=== PATIENT | female | born 1940 | race Caucasian/White ===

== ENCOUNTER 2021-03-22 12:54 | Outpatient (REF) | payer MEDICARE, SELFPAY ==
--- NOTE | ~2021-03-22 | MM_ITS ---
EXAMINATION: MM DIAGNOSTIC DIGITAL MAMMOGRAPHY, BILATERAL CLINICAL INFORMATION: Due for yearly. Right lumpectomy for invasive ductal cancer 09/13/2017. COMPARISON: Mammography: 10/22/2018, 04/16/2018, 09/13/2017, 08/23/2017, 08/16/2017, 11/04/2016 TECHNIQUE: Digital mammography is performed in craniocaudal and mediolateral oblique views along with computer-aided detection (CAD). Additional right magnification ML view is provided. Exam is technically challenging requiring 2 technologists. Exam optimized to patient capabilities. FINDINGS: The breasts are heterogeneously dense, which may obscure small masses (ACR BI-RADS breast composition Category c). There are post therapy changes on the right with mild stable scarring and surgical clips. Some old biopsy clip markers again seen right breast. There is no significant mass or interval architectural abnormality or abnormal calcifications. No significant changes. Results are provided to the patient at time of visit by the technologist. MM/MM diagnostic mammo BI IMPRESSION: No mammographic evidence of malignancy. Post therapy changes right breast. ASSESSMENT: BI-RADS 2: Benign RECOMMENDATION: Routine annual mammography screening. This patient's information was entered into a reminder system with a target due date for their next mammogram.
== END 2021-03-22 12:55 | disposition home or self-care (01) ==
LOC: HO.MAMMO 12:54
PROVIDERS: Visit Provider Internal Medicine Medical Oncology
DX: Z85.3 Personal history of malignant neoplasm of breast (principal)
CPT/HCPCS: 77066

== ENCOUNTER → 2021-03-23 11:11 | Outpatient (REF) | payer MEDICARE, SELFPAY ==
--- NOTE | ~2021-03-23 | NM_ITS ---
EXAMINATION: NM BONE SCAN OF THE WHOLE BODY CLINICAL INFORMATION: Breast cancer, look for bone metastases. COMPARISON: The previous bone scan dated 12/13/2017 is available for comparison. No recent radiographs are available for comparison. TECHNIQUE: Multiple gamma scintillation camera images of the whole body were performed 2.5 hours following the intravenous administration of 20 mCi Tc-99m MDP. FINDINGS: In the head, there is mildly increased activity diffusely in the frontal calvarium, probably due to hyperostosis frontalis interna. In the thoracic cage and upper extremities, there is mildly increased activity in the sternoclavicular joints bilaterally and at the costochondral junctions of the sixth, seventh, and eighth ribs and in a faint focus in the posterolateral aspect of the left 10th rib. There is mildly increased activity predominantly medially in the right humeral head. In the spine, there is a mild thoracolumbar kyphoscoliosis with lumbar convexity to the left. There is mildly increased activity in the left posterior elements at L4-L5 and a faint focus of increased activity at the left costovertebral junction of T1. In the pelvis, there is intense abnormally increased activity in a curvilinear focus through the full height of the right sacral ala. This is just medial to the right sacroiliac joint. Additional foci of mildly to moderately increased activity are present in the right superior and inferior pubic rami and adjacent to the symphysis in the left inferior pubic ramus. Superior pubic ramus on the left is obscured by the urinary bladder in all views. In the lower extremities, no significant abnormalities are present. No other definite bony abnormalities are noted. The urinary bladder and faint visualization of both kidneys are noted. Compared to the previous bone scan dated 12/13/2017 all the abnormalities or new except for mild abnormality in the left costovertebral junction of T1 and minimal abnormalities at L4-L5. IN/IN bone scan whole body IMPRESSION: 1. Very prominent abnormalities in the pelvis are most consistent with an acute osteoporotic insufficiency fracture in the right sacral ala and additional insufficiency fractures in the pubic rami bilaterally. Metastatic disease cannot be entirely ruled out but is a much less likely explanation for this pattern of abnormalities in the pelvis. 2. A few additional mild nonspecific abnormalities are noted as described above and these are all likely arthritic or traumatic in etiology. None of these abnormalities is strongly suspicious for metastatic disease.
== END ==
LOC: HO.NUCMED 11:11
PROVIDERS: Visit Provider Internal Medicine Medical Oncology
DX: C50.919 Malignant neoplasm of unspecified site of unspecified female breast (principal)
CPT/HCPCS: 78306; A9503

== ENCOUNTER → 2021-03-30 14:29 | Outpatient (BNVA) | payer MEDICARE, SELFPAY | PROVIDERS: PCP Nurse Practitioner Family; Visit Provider Obstetrics & Gynecology ==

== ENCOUNTER → 2024-05-01 13:38 | Outpatient (RCR) | payer MEDICARE, SELFPAY ==
--- NOTE | 2020-12-31 11:20 | PM.HEMONCPN ---
Medical Summary - Medical Summary Date of Service: 12/31/20 Chief complaint: Follow-up for: Breast cancer. Medical Summary: DIAGNOSIS: Right breast carcinoma. INVASIVE DUCTAL CARCINOMA, WELL-DIFFERENTIATED. TUMOR SIZE: 0.4 CM. IN GREATEST DIMENSION. HISTOLOGIC TYPE: INVASIVE DUCTAL CARCINOMA. HISTOLOGIC GRADE: TUBULE FORMATION: 1 OF 3. NUCLEAR PLEOMORPHISM: 1 OF 3. MITOTIC RATE: 1 OF 3. TOTAL SCORE: 3 OF 9. OVERALL GRADE: GRADE 1. CARCINOMA IN-SITU: DUCTAL (DCIS): NOT IDENTIFIED. LOBULAR (LCIS): NOT IDENTIFIED. RESECTION MARGINS: INVASIVE CARCINOMA: 1.0 CM. FROM THE CLOSEST ANTERIOR RESECTION MARGIN. DCIS: NOT IDENTIFIED. LYMPH-VASCULAR INVASION: NOT IDENTIFIED. ANCILLARY STUDIES: ESTROGEN RECEPTOR: POSITIVE, STRONG STAINING IN 51-100% OF TUMOR CELLS. PROGESTERONE RECEPTOR: POSITIVE, STRONG STAINING IN 51-100% OF TUMOR CELLS. HER-2/nick: PENDING; WILL BE REPORTED IN AN ADDENDUM. P63: NEGATIVE IN TUMOR CELLS. 3 sentinel nodes were negative. PATHOLOGIC STAGE: pT1a pN0(i-). CURRENT THERAPY: STARTED TAMOXIFEN SEPTEMBER 2017. Interval History Interval history: This is a pleasant 80 year-old lady, here for a follow-up visit, after a long hiatus. She was last seen here in August 2019. Apparently subsequently her condition deteriorated. She was deemed unsafe at home. Was found by family wandering naked at home. She had experienced significant weight loss. A couple of weeks ago she fell and was taken to [facility] emergency room. Medical records from 11/09: Patient was found naked in confused at her home by her [employer]IC TE[employer]ER. Last known well was 3 days prior. She was mildly hypertensive and tachycardic. O2 sat 90%. Unable to provide any meaningful information. Her labs were normal troponin normal. TSH 3 0.16. COVID negative. B12 was noted to be low. That was replaced. UA negative. Chest x-ray negative. CT head negative. Neurology recommended supportive therapy. EEG showed no epileptiform activity. MRI of the brain showed no acute pathology, multiple punctate foci of microhemorrhage bilaterally may reflect sequelae of CVA, embolic disease, small vessel disease or prior trauma. Upon speaking with her niece Bonnie she has had progressively worsening cognitive impairment over the last 1-2 years. She was noted to have encephalopathy however likely had significant dementia. She was transferred to correction, from the emergency room. Since then she has been at [facility]. On talking to the nurse practitioner Eleonora Siegel, patient has been self isolating. She spends a lot of time in bed. She is cooperative however she is quite impaired. She is supposed to walk with a walker however she forgets. She requires constant redirection. With that she can manage ADLs independently. She has had a chronic pain in the back and neck. That has been going on for years. She denies any breast related complaints. No chest pain or trouble breathing. No abdominal pain, nausea vomiting, heartburn indigestion. Her bowels are moving without any gross blood in it. Appetite is not good. She is not a big eater. She has lost a significant amount of weight. She is in good spirits. The rest of the review of systems is unremarkable. Review of Systems - Constitutional Reports system reviewed and no additional complaints, except as documented, Reports lack of energy - Eyes Reports system reviewed and no additional complaints, except as documented - ENT Reports system reviewed and no additional complaints, except as documented - Cardiovascular Reports system reviewed and no additional complaints, except as documented - Respiratory Reports no additional respiratory complaints - Gastrointestinal Reports system reviewed and no additional complaints, except as documented - Genitourinary Reports no additional female genitourinary complaints - Musculoskeletal Reports system reviewed and no additional complaints, except as documented, Reports back pain, Reports joint pain - Integumentary/Breasts Skin/Breast: Reports no additional skin complaints - Neurologic Reports system reviewed and no additional complaints, except as documented, Reports abnormal gait, Reports confusion, Reports memory loss Comments: Dementia. - Psychiatric Reports system reviewed and no additional complaints, except as documented - Endocrine Reports no additional endocrine complaints - Hematologic/Lymphatic Reports system reviewed and no additional complaints, except as documented - Allergic/Immunologic Reports system reviewed and no additional complaints, except as documented [facility] Medical History: Medical History (Last Updated 12/31/20 @ 11:56 by Ximena Casillas) Altered mental status Anxiety and depression Breast cancer Cervical spondylosis Deficiency of other specified B group vitamins Encephalopathy Endometriosis GERD (gastroesophageal reflux disease) Glucose intolerance Hyperlipemia Hypertension Hypothyroidism Migraine MVP (mitral valve prolapse) Osteopenia Other abnormalities of gait and mobility Other symptoms and signs involving cognitive functions and awareness Personal history of urinary calculi Thrombocytosis Unspecified dementia without behavioral disturbance Unsteadiness on feet Weakness Functional capacity: uses cane/walker Patient : No Family History: Family History (Last Updated 12/31/20 @ 11:23 by Ximena Casillas) Mother Cervical cancer Father Heart attack Sister Diabetes mellitus Sister ALS (amyotrophic lateral sclerosis) Surgical History: Surgical History (Last Updated 12/31/20 @ 11:21 by Ximena Casillas) H/O lumpectomy Social History: Social History (Last Updated 12/31/20 @ 11:24 by Ximena Casillas) Alcohol History: Alcohol intake: former Alcohol History Details: Alcohol intake frequency: does not drink Tobacco History: Smoking Status: Former smoker Substance Use History: Use of substances other than those prescribed or required for medical reasons: No Nutrition Assessment: Patient : No Oncology Screenings - ECOG Performance Status ECOG Performance Status: 1 Home Medications and Allergies Home Medications Medication Instructions Recorded Confirmed Type acetaminophen 325 mg PO QID PRN 12/31/20 12/31/20 History alendronate [Fosamax] 70 mg PO QWEEK 12/31/20 12/31/20 History bisacodyl 10 mg [place] DAILY 12/31/20 12/31/20 History calcium carbonate-vitamin D2 tab PO 12/31/20 History [Calcium + Vitamin D] gabapentin 100 mg PO BID 12/31/20 12/31/20 History lisinopril 2.5 mg PO DAILY 12/31/20 12/31/20 History magnesium citrate [Citrate of 150 ml PO DAILY PRN 12/31/20 12/31/20 History Magnesia] magnesium hydroxide [Milk of 400 mg PO DAILY PRN 12/31/20 12/31/20 History Magnesia] naloxone 0.4 mg IM Q2M PRN 12/31/20 12/31/20 History sodium phosphates [Fleet Enema] 118 ml [place] DAILY 12/31/20 12/31/20 History tamoxifen 20 mg PO DAILY 12/31/20 12/31/20 History tramadol 50 mg PO Q8H PRN 12/31/20 12/31/20 History Allergies Allergy/AdvReac Type Severity Reaction Status Date / Time codeine [CODEINE] Allergy Unknown NAUSEA & Unverified 05/20/20 16:30 VOMITING, nausea and vomiting Codeine Sulfate AdvReac Unknown nausea and Uncoded 08/26/19 00:00 vomiting Exam - Constitutional Present: no acute distress, thin, chronically ill appearing - Routine HEENT Exam Head: Present: normal inspection Eye: Present: normal appearance ENT: Present: mucous membranes moist - Routine Neck Exam Present: full ROM - Routine Respiratory Exam Present: CTAB - Routine Cardiovascular Exam Cardiovascular: Present: RRR, S1, S2 - Routine Abdominal Exam Present: soft, nontender - Routine Rectal Exam Patient deferred: digital exam - Routine Extremities Exam Present: nontender - Routine Back/Spine/Pelvis Exam Back/Spine: Present: full ROM - Routine Skin Exam Present: intact - Routine Neurological Exam Present: alert, oriented X3 - Routine Psychiatric Exam Present: normal affect Data - Labs CBC & Chem 7: 12/31/20 11:26 12/31/20 11:26 Progress Note: A/P (1) Breast cancer, right breast Status: Acute Assessment and plan: This is a pleasant 80 year-old lady, with recent diagnosis of Right Breast Carcinoma. Stage pT1A, p. N0 (i negative.) Tumor size is 0.4 cm, grade 1, no lymphovascular invasion, ER/NY positive HER-2/nick negative, sentinel lymph node, negative. Patient had a very small tumor with good risk features. She had wide margins. She would be a candidate for postlumpectomy radiation therapy. She may be able to receive accelerated RT. I offered her antiestrogen therapy. I proceeded with the bone mineral density as a basaline. This was done on September 27 and revealed: Osteoporosis based on the lowest T-score value of -2.7 in the femoral neck applying World Health Organization criteria. 10-YEAR FRACTURE RISK PREDICTION, FRAX: Major osteoporotic fracture (clinical spine, forearm, hip or shoulder) 19.0%. Hip fracture 6.9%. In view of the bone density results revealing osteoporosis, I had elected to pick the antiestrogen agent, Tamoxifen. She has been taking it, since September 2017. So far she is tolerating it well. She is clinically doing very well. She had a CAT scan of the abdomen in 10/21 which raised concern for: Increasing size of sclerotic focus right anterior pubic bone. Metastatic involvement suspected. I proceeded with the bone scan for further evaluation. This was done on December 13 2017 and revealed: No definite abnormality in the right pubic bone adjacent to the symphysis is clearly identified, although the the urinary bladder activity somewhat obscures this region. A few mild nonspecific abnormalities are noted as described above and these are all likely arthritic or traumatic in etiology. Also reported were concerned about a gallbladder polyp for which an ultrasound was recommended. Prominence of the endometrial stripe, for which a pelvic ultrasound was recommended, along with EQUAL OPPORTUNITY REPRESENTATIVE correlation. I resent a copy of the CAT scan to his primary care Doctor, for further recommendations. In view of the Osteoporosis, I had started her on a bisphosphonate. However she is currently on Fosamax weekly. I had referred her for postlumpectomy radiation consultation, at [facility]. PLAN: She has been advised to take the Tamoxifen for 5 years. She will be following up with Dr. Valerio, in the near future. She will need a referral for EQUAL OPPORTUNITY REPRESENTATIVE evaluation given the prominent endometrial stripe. She will return in 6 month for a followup visit. Thank you, CC: Eleonora Siegel. Dr. Maverick Ordoñez. - Time Spent With Patient Total time spent is greater than 50% in coordination of care (as documented) at patient's floor/unit and/or counseling patient: 25 - 35 minutes
[2020-12-31 11:26] VITALS: BP 196/86; PULSE 94; RESP 12; TEMP 37; O2SAT 98
[2020-12-31 11:36] LABS: MANUAL DIFF FLAG NO
[2020-12-31 11:48] LABS: Basophils Percent Auto 0.5 % (0-2); Eosinophils Absolute Auto 0.1 X10*3/uL (0.0-0.4); Eosinophils Percent Auto 0.6 % (0-4); Hematocrit 42.6 % (37-47); Hemoglobin 14.2 g/dl (12.0-16.0); Imm Gran Abs Auto 0.05 X10*3/uL (0.00-0.03); Imm Gran Pct Auto 0.6 % (0.0-0.4); Lymphocytes Absolute Auto 1.2 X10*3/uL (1.2-4.9); Lymphocytes Percent Auto 13.5 % (20-40); Mean Corpuscular HGB Conc 33.3 g/dl (31.0-35.0); Mean Corpuscular Hemoglobin 34.9 pg (27.0-33.0); Mean Corpuscular Volume 104.7 fL (80-98); Monocytes Absolute Auto 0.4 X10*3/uL (0.1-1.2); Monocytes Percent Auto 4.5 % (2-11); Neutrophils Absolute Auto 6.8 X10*3/uL (2.0-8.3); Neutrophils Percent Auto 80.3 % (45-73); Platelet Count 415 X10*3/uL (160-400); Red Blood Count 4.07 X10*6/uL (4.20-5.50); Red Cell Distribution Width 14.7 % (11.0-16.0); White Blood Count 8.5 X10*3/uL (4.8-10.8)
[2020-12-31 12:04] LABS: Alanine Aminotransferase 25 U/L (0-31); Albumin Level 3.9 g/dL (3.5-5.0); Alkaline Phosphatase 59 U/L (39-117); Anion Gap 14 (12-20); Aspartate Amino Transferase 19 U/L (5-31); Bilirubin Total 0.7 mg/dL (0.0-1.0); Blood Urea Nitrogen 13 mg/dL (9-16); Calcium 8.6 mg/dL (8.4-10.2); Carbon Dioxide 22 mmol/L (22-29); Chloride 110 mmol/L (96-108); Estimated Glomerular Filt Rate > 60; Glucose Random 167 mg/dL (60-115); Potassium 3.6 mmol/L (3.3-5.1); Sodium 142 mmol/L (135-145); Total Protein 5.9 g/dL (6.5-8.0)
--- NOTE | 2020-12-31 12:16 | MHC.HEMONCMA ---
Pt present to f/u on R breast cancer. History reviewed, labs drawn and pt to return in 6 months.
[2021-01-01 10:47] LABS: CA 27.29 26 U/mL (<38)
--- NOTE | 2021-03-21 10:45 | MHC.HEMONCMA ---
Spoke with Sejal from [facility], I let her know that I made the following appts: 1. Bone scan 03/23/2021 at 11am. 2. F/u with Dr Amaya 03/31/2021 at 9:30am. 3. HYDROELECTRIC STATION OPERATOR consult with Dr Valdes 03/30/2021 at 2:45pm. Sejal will call me if there is anything that needs to be moved around or if she has transportation issues for the patient.
== END | disposition home or self-care (01) ==
LOC: HO.ONC 12-31 11:05
PROVIDERS: PCP Nurse Practitioner Family; Visit Provider Internal Medicine Medical Oncology
DX: C50.911 Malignant neoplasm of unspecified site of right female breast (principal); Z79.810 Long term (current) use of selective estrogen receptor modulators (SERMs); Z17.0 Estrogen receptor positive status [ER+]; M81.0 Age-related osteoporosis without current pathological fracture
CPT/HCPCS: 36415; 80053; 85025; 86300; 99214